=== PATIENT | female | born 1990 | race Caucasian/White ===

== ENCOUNTER 2024-05-28 07:32 | Outpatient (CLI) | payer OTHER, SELFPAY ==
--- NOTE | ~2024-05-28 | US_ITS ---
EXAMINATION: US abdomen limited DATE: 05/28/2024 08:16 INDICATION: Gallbladder polyp. TECHNIQUE: Multiple grayscale and Doppler ultrasound images of the abdomen were obtained. COMPARISON: None FINDINGS: The visualized portions of the head, body, and tail of the pancreas are normal. The liver i s normal without focal lesion. No liver surface nodularity. There is normal flow in main portal vein. The gallbladder is normal in size and contains sludge. There are polyps in the gallbladder measuring up to 4 mm, likely benign cholesterol polyps. No visible gallstones. No gallbladder wall thickening. IMPRESSION: 1. Small gallbladder polyps, likely not clinically significant. No follow-up is needed. Reviewed, dictated and finalized at location A.
== END 2024-05-28 07:33 | disposition home or self-care (01) ==
PROVIDERS: PCP Nurse Practitioner; Visit Provider Nurse Practitioner
DX: K82.4 Cholesterolosis of gallbladder (principal)
CPT/HCPCS: 76705